=== PATIENT | female | born 1995 | race Caucasian/White ===

== ENCOUNTER 2016-12-16 13:59 | Emergency (ER) | payer BC ==
[~2016-12-16] VITALS: Ht 170.2 cm; Wt 92.3 kg
[2016-12-16 14:07] VITALS: BP 127/81; PULSE 74; TEMP 37.6; O2SAT 97; Ht 170.2 cm; Wt 92.3 kg
--- NOTE | 2016-12-16 15:31 | DIAGNOSTIC IMAGING REPORT ---
MAXILLOFACIAL CT CT DOSE: 1299.56 mGy.cm HISTORY: Trauma fall last PM; facial injuries TECHNIQUE: Multiaxial CT images of the maxillofacial region were performed and reformatted in the coronal plane without the use of contrast. COMPARISON: None. FINDINGS: The visualized cervical spine, skull base, pterygoid plates, nasal bones, lamina papyracea, orbital floors, mandible, and zygomatic arches are intact. No fractures. The orbits are unremarkable. IMPRESSION: No fractures within the maxillofacial region. Electronically signed by: Philipp Lee M.D. 12/16/2016 3:30 PM Dictated Date/Time: 12/16/2016 3:28 PM
[2016-12-16] MEDS ORDERED: XYLOCAINE 1%/SOD BICARB 20 ML VIAL INFIL ONE (15:45)
--- NOTE | 2016-12-17 13:31 | EMERGENCY ROOM VISIT NOTE ---
ED Visit Note First contact with patient: 14:21 Chief Complaint: Fall. History of Present Illness: Ms. Malcolm is a 21-year-old white female who ambulates into the ED accompanied by her mother complaining of a nasal laceration after fall. Patient reports she was drinking alcohol last night, tripped and fell, approximately 9 PM; 17 hours ago and struck her face on the ground. She reports at the time of the injury she did not have loss of consciousness and since the injury she is not having any headaches, visual changes, hearing changes, difficult speaking, difficulty swallowing, difficulty ambulating/ coordinating body, neck pain, nausea or vomiting. She was initially seen at a local urgent care center her who referred her to the ED because of the nasal laceration. He urgent care center did prescribed her Keflex because of her facial injuries Currently she is complaining of facial pain from her nose to her chin over the central portion of the face where she has a nasal laceration, multiple contusions and abrasions. She describes her pain as a throbbing and achy pain. She rates her discomfort 5/10. The pain is nonradiating. The pain worsens with palpation. She has not identified any alleviating factors related to the pain. She has not taken any medications for pain prior to arrival at the hospital. Review of Systems: As noted above in history of present illness. Past Medical History: Patient denies. Current Medications: Patient denies. Allergies to Medications: Patient denies. Social History: Patient is [employer] student; she feels safe in her home environment; she denies tobacco use and admits to alcohol use. Tetanus Immunization Status: Patient reports up-to-date. Physical Examination: Vital Signs: Date Time Temp Pulse Resp B/P Pulse Ox O2 Delivery O2 Flow Rate FiO2 12/16/16 14:07 37.6 74 18 127/81 97 Room Air GENERAL: 21-year-old female in mild distress due to pain, nontoxic-appearing, afebrile and hemodynamically stable. NEUROLOGICAL: Awake, alert and oriented to person, place and time. Answering questions appropriately and following commands. Normal gait. Good hand eye coordination. No focal motor sensory deficits. Cranial nerves II through XII grossly intact. Short-term and long-term recall. SKIN: Warm, dry and pink. Face: Patient has a series of superficial abrasions over the central portion of the face and over the bridge of the nose there is a 1.3 cm full-thickness laceration. These wounds have been cleansed and there is no active bleeding or signs of infection. HEENT: Skull: Atraumatic and normocephalic. No deformity/depressions, nontender. No raccoon's eyes or bolaños signs. No drainage from ears and air; no hemotympanum. Face: Soft tissue injuries as noted above. Moderate swelling extending from the mid forehead extending over the nose, the upper lip and chin. Tenderness throughout this area with prominence over the nose, maxilla and mandible. No palpable bony crepitus or deformities. No malocclusion. She does have a small chipped tooth with an oral oral cavity with no active bleeding or exposure of the dentine or nerves. Airway is patent. Speech is clear. Trachea midline. No jugular venous distention. BACK: No tenderness over the bony cervical and thoracic spine. Full range of motion of the cervical spine. ED Course: Patient is assessed as noted above. Facial CT: Was read by myself and the radiologist showing no acute fractures or abnormalities. Wound Repair: Complexity: Basic Verbal consent was obtained after the risks and benefits were explained. The skin was prepped with betadine and a sterile field set. Wound edges of the wound was anesthetized with 1.1 ml buffered 1% lidocaine. The wound was explored for foreign bodies and none found. Copious irrigation was performed using sterile saline. With direct pressure the bleeding subsided. Debridement was not performed. The wound edges were approximated using 6-0 Ethilon with 3 simple interrupted sutures. Hemostasis and excellent approximation was achieved. Antibacterial ointment . No complications and the patient tolerated the procedure well. Patient was educated about tonight's findings and instructed on his treatment plan; he verbalizes understanding and agreement with this plan. Clinical Impression: Laceration of the nose. Facial abrasions. Status post fall. Disposition: Patient discharged home in stable condition; prior to departure he was reassessed and subjectively reported she was feeling the same. Plan: Comfort measures, wound care, signs of infection and signs of head injury were discussed with the patient and her mother Patient was encouraged to follow-up with [facility] services or return to the ED for signs of infection and/or suture removal in 5-6 days. Patient was encouraged return the ED for any signs of head injury or any new/ concerning symptoms.
== END 2016-12-16 16:14 | disposition home or self-care (01) ==
LOC: C.EDB 14:00 → C.EDD 16:14
DX: S01.21XA Laceration without foreign body of nose, initial encounter (principal); W01.198A Fall on same level from slipping, tripping and stumbling with subsequent striking against other object, initial encounter; Y93.89 Activity, other specified; Y92.89 Other specified places as the place of occurrence of the external cause; Y99.8 Other external cause status